=== PATIENT | male | born 1935 | race Caucasian/White ===

== ENCOUNTER → 2023-06-29 08:07 | Outpatient (REF) | payer MEDICARE, OTHER, SELFPAY ==
[2023-06-29 12:57] LABS: % Basophils 0.5 % (0-2); % Eosinophils 1.3 % (0-6); % Immature Granulocytes 0.3 % (0-0.5); % Lymphocytes 31.4 % (20.5-51.1); % Monocytes 8.9 % (1.7-9.3); % Neutrophils 57.6 % (42.2-75.2); Absolute Eosinophils 0.1 10^3/uL (0-0.7); Absolute Lymphocytes 2.5 10^3/uL (1.2-3.4); Absolute Monocytes 0.7 10^3/uL (0.1-0.6); Absolute Neutrophils 4.6 10^3/uL (1.4-6.5); Hemoglobin 13.7 g/dL (13.0-18.0); Mean Corp Hgb Conc. 35.1 g/dL (33.0-37.0); Mean Corpuscular Hgb 30.9 pg (27.0-31.0); Mean Corpuscular Volume 87.8 fL (80.0-94.0); Mean Platelet Volume 9.9 fL (7.4-10.4); Nucleated Red Blood Cells % 0 % (-); Platelet Count 275 10^3/uL (130-400); Red Blood Cell Count 4.44 10^6/uL (4.70-6.10); Red Cell Dist. Width 14.3 % (11.5-14.5); White Blood Cell Count 7.9 10^3/uL (4.8-10.8)
[2023-06-29 13:43] LABS: ALT (SGPT) 23 U/L (0-50); AST (SGOT) 24 U/L (17-59); Albumin 4.4 g/dl (3.5-5.0); Alkaline Phosphatase 78 U/L (38-126); Blood Urea Nitrogen 16 mg/dl (9-20); Calcium 9.1 mg/dl (8.4-10.2); Carbon Dioxide 30 mmol/L (22-30); Chloride 95 mmol/L (98-107); Glucose 107 mg/dl (70-99); Potassium 3.7 mmol/L (3.5-5.1); Sodium 133 mmol/L (135-145); Total Bilirubin 0.9 mg/dl (0.2-1.3); Total Protein 6.9 g/dl (6.3-8.2); eGFR > 60.00
[2023-06-29 14:09] LABS: PSA, Total - Diagnostic < 0.06 ng/ml (0.0-4.0)
== END ==
LOC: HWLAB 08:07
PROVIDERS: ATTENDING PHYSICIAN Internal Medicine
DX: I10 Essential (primary) hypertension (principal); M51.26 Other intervertebral disc displacement, lumbar region; C61 Malignant neoplasm of prostate
CPT/HCPCS: 36415; 80053; 84153; 85025

== ENCOUNTER → 2023-07-02 10:19 | Outpatient (REF) | payer MEDICARE, OTHER, SELFPAY | LOC: HWRAD 10:19 | PROVIDERS: ATTENDING PHYSICIAN Internal Medicine | DX: C61 Malignant neoplasm of prostate (principal); R10.32 Left lower quadrant pain; R19.4 Change in bowel habit | CPT/HCPCS: 74178; Q9967 ==

== ENCOUNTER → 2024-01-10 10:58 | Outpatient (REF) | payer MEDICARE, OTHER, SELFPAY | LOC: MRI 3T 10:58 | PROVIDERS: ATTENDING PHYSICIAN Specialist; FAMILY PHYSICIAN Internal Medicine | DX: M75.42 Impingement syndrome of left shoulder (principal) | CPT/HCPCS: 73221 ==

== ENCOUNTER → 2024-04-06 08:06 | Outpatient (REF) | payer MEDICARE, OTHER, SELFPAY | LOC: HWRAD 08:06 | PROVIDERS: ATTENDING PHYSICIAN Family Medicine | DX: R07.89 Other chest pain (principal) | CPT/HCPCS: 71046 ==

== ENCOUNTER 2024-08-16 12:46 | Emergency (ER) | payer MEDICARE, OTHER, SELFPAY ==
[2024-08-16 12:49] VITALS: BP 151/95
[2024-08-16 13:11] LABS: % Basophils 0.6 % (0-2); % Eosinophils 1.1 % (0-6); % Immature Granulocytes 0.2 % (0-0.5); % Lymphocytes 28.8 % (20.5-51.1); % Monocytes 9.1 % (1.7-9.3); % Neutrophils 60.2 % (42.2-75.2); Absolute Basophils 0.1 10^3/uL (0-0.2); Absolute Eosinophils 0.1 10^3/uL (0-0.7); Absolute Lymphocytes 2.4 10^3/uL (1.2-3.4); Absolute Monocytes 0.8 10^3/uL (0.1-0.6); Absolute Neutrophils 5.1 10^3/uL (1.4-6.5); Hematocrit 41.2 % (39.0-52.0); Hemoglobin 14.5 g/dL (13.0-18.0); Mean Corp Hgb Conc. 35.2 g/dL (33.0-37.0); Mean Corpuscular Hgb 31.5 pg (27.0-31.0); Mean Corpuscular Volume 89.6 fL (80.0-94.0); Mean Platelet Volume 9.4 fL (7.4-10.4); Nucleated Red Blood Cells % 0 % (-); Platelet Count 249 10^3/uL (130-400); Red Cell Dist. Width 13.3 % (11.5-14.5); White Blood Cell Count 8.5 10^3/uL (4.8-10.8)
[2024-08-16 13:31] LABS: ALT (SGPT) 21 U/L (0-50); AST (SGOT) 22 U/L (17-59); Albumin 4.4 g/dl (3.5-5.0); Alkaline Phosphatase 79 U/L (38-126); Blood Urea Nitrogen 19 mg/dl (9-20); Calcium 9.5 mg/dl (8.4-10.2); Carbon Dioxide 33 mmol/L (22-30); Chloride 100 mmol/L (98-107); Glucose 139 mg/dl (70-99); Potassium 3.8 mmol/L (3.5-5.1); Sodium 137 mmol/L (135-145); Total Bilirubin 0.6 mg/dl (0.2-1.3); Total Protein 7.1 g/dl (6.3-8.2); eGFR > 60.00
[2024-08-16 14:01] LABS: PSA, Total - Diagnostic < 0.06 ng/ml (0.0-4.0)
--- NOTE | 2024-08-16 14:11 | ED.CVA ---
History of Present Illness
General
Chief Complaint: CVA/TIA Symptoms
Source: patient
Exam Limitations: none
Time Seen by Provider: 08/16/24 14:11
Nursing documentation reviewed up to this point in time: agreed with
Onset of Stroke Symptoms
Onset of symptoms known: No
Time pt last seen normal is known: No
History of Present Illness
History of Present Illness:
89-year-old male presents with 6 episodes in the past 3 weeks of lightheadedness, left arm numbness and inability to move the fingers on his left hand. These are accompanied by a mild headache also. Every time it happens he chews 5 baby aspirin's.
These episodes last 2 to 3 minutes.
Today at 10:00 AM 'I felt like I would pass out,' his left arm got numb and weak and could not move his fingers. At this time he states his symptoms are resolved with 'just a tiny bit of numbness in his left hand fingers. There was never any loss
of consciousness.
Denies chest pain or trouble breathing. Denies N/V/D/C.
Past History
Past History
ED Past Medical History: Asthma, Cancer (Prostate cancer), Hypercholesterolemia, Other (TIA, vertigo) and Other (Status post prostatectomy for cancer, bilateral hernia repair, status post retinal tear, status post laser surgery for glaucoma, status
post cataracts, status post TIA in 2008 with a normal workup clearing MRI and CT)
ED Past Surgical History: Cardiac (Cardiac catheterization 02/27/2011 showing normal pulmonary artery pressures with no significant pulmonary hypertension. Exercise stress test 02/22/2011 showing no significant ischemia), Urological and Other
(bilateral inguinal hernia repairs)
Social History
Tobacco: Non-smoker
Alcohol: Occasional
Personal:
Living: alone
Employment: Retired
Family History
Family History: Other (Noncontributory)
Review of Systems
Review of Systems
Allergies reviewed?: Yes
All Other Systems: ROS reviewed and negative except as documented in HPI and ROS
Constitutional: Denies fever or fatigue
Respiratory: Denies trouble breathing
Cardiac: Denies chest pain or syncope
ABD/GI: Denies abdominal pain, nausea, vomiting, diarrhea or anorexia
: Denies dysuria, frequency, incontinence or difficulty voiding
Musculoskeletal: Reports other (bilateral rotator cuff problems with numbness in left arm and hand at times. Followed by ortho, recommended surgery but trying steroid injections currently)
Skin: Reports no symptoms
Neurological: Reports numbness (States left hand fingers are 'a tiny bit numb.'); Denies dizzy, headache or weakness
Phy Exam
Physical Exam
Physical Exam:
GENERAL: No acute distress. A&Ox3.
CONSTITUTIONAL: Afebrile.
EYES: clear, conjunctivae normal
ENMT: moist mucus membranes, Pharynx nl
RESPIRATORY: Regular respirations, nonlabored, lungs clear.
CARDIOVASCULAR: Regular rate and rhythm, no murmurs, no rubs.
GI: Soft, nontender, normal BS
MUSCULOSKELETAL: Moves with ease. Well perfused.
SKIN: Warm, dry, pink
PSYCH: Normal mood and affect. Well kept, interactive and appropriate
NEUROLOGIC: Awake, alert and oriented. Speech clear. Cranial nerves II through XII intact. Ambulates well with steady gait. No focal neurological deficits
Course
Orders/Labs/Results
Orders:
Orders
08/16/24
Electrocardiogram (*1) Stat
Comment: DONE
08/16/24 12:53
CT Head W/o Iv Contrast Urgent
Comment:
Reason For Exam: L arm numbness, lightheaded
08/16/24 13:03
Complete Blood Count/With Diff Urgent
Comprehensive Metabolic Panel Urgent
PSA, Total - Diagnostic Urgent
Troponin I Urgent
08/16/24 15:44
Add On- LAB Urgent
Tests Added?: troponin
08/16/24 17:10
CT Head & Neck Angio W/wo IV Urgent
Comment:
Reason For Exam: ?TIAs past 3 weeks, asymptomatic now, Neuro reques
Abnormal Lab Results
08/16/24
13:03
RBC 4.60 L 10^6/uL
(4.70-6.10)
MCH 31.5 H pg
(27.0-31.0)
Absolute Monos (auto) 0.8 H 10^3/uL
(0.1-0.6)
Carbon Dioxide 33 H mmol/L
(22-30)
Glucose 139 H mg/dl
(70-99)
08/16/24 13:03
08/16/24 13:03
Vital Signs
Initial and Last Documented VS:
Initial Vital Signs
Temp Pulse Resp BP Pulse Ox
98.7 F 97 16 151/95 95
08/16/24 12:49 08/16/24 12:49 08/16/24 12:49 08/16/24 12:49 08/16/24 12:49
Last Documented Vital Signs
Temp Pulse Resp BP Pulse Ox
97.9 F 69 15 142/80 94
08/16/24 16:09 08/16/24 19:00 08/16/24 19:00 08/16/24 19:00 08/16/24 19:00
MDM/Problems Addressed
Differential Diagnosis Includes:
TIA, CVA, ACS, radiculopathy from known shoulder pathology
MDM/Problems Addressed:
89-year-old male presents with 6 episodes in the past 3 weeks of lightheadedness, left arm numbness and inability to move the fingers on his left hand. These are accompanied by a mild headache also. Every time it happens he chews 5 baby aspirin's.
These episodes last 2 to 3 minutes.
Today at 10:00 AM 'I felt like I would pass out,' his left arm got numb and weak and could not move his fingers. At this time he states his symptoms are resolved with 'just a tiny bit of numbness in his left hand fingers. There was never any loss
of consciousness.
Denies chest pain or trouble breathing. Denies N/V/D/C.
Patient states history of prostate cancer that was removed he is requesting a PSA test
2:00 PM:
EKG normal sinus rhythm with RBBB
CBC normal
CMP with no clinically significant abnormality
Head CT shows no acute intracranial abnormality or interval change per the radiology read
3:55 PM
Case discussed with Dr. Rodriguez who agrees patient should be admitted for further neuro evaluation.
No indication of cardiac etiology of symptoms.
Hospitalist notified of admission.
Pt informed
5:00 p.m.
HAFSA Holbrook saw pt and reports he is refusing to stay as 'observation' admission.
Discussed with Dr. Rodriguez, pt to sign out AMA
Dr. Vera Neurology consulted, he requests CTA head and neck, if ok can go home.
7:00 p.m.
CTA radiology report reviewed: No significant finding.
He will contact his PCP tomorrow about today's visit
Remains asymptomatic
*EKG
EKG Intrepretation Date: 08/16/24
Interpretation: abnormal
Comparison EKG: no changes
Rate: normal
Rhythm: sinus
[place]: normal axis
Interval: normal interval
QRS Pattern: right bundle branch block
Ischemia: no ischemia
*Critical Care Note
Total Time (30-74mins, 75-104mins- exclusive of procedures): Not Applicable
ED Attending Note
-
Portions of this chart may have been created with voice recognition software.� Occasional wrong word or��sound alike� substitutions may have occurred due to the inherent limitations of voice recognition software.
Discharge Plan
Departure
Patient Disposition: Home (Routine Discharge)
Date of Disposition: 08/16/24
Time of Disposition: 15:55
Admit to: Med/Surg
Patient with high blood pressure during this ER visit?: No
Condition: Good
Discharge Problem:
Paresthesia of left upper extremity
Instructions: Paresthesia (DC)
Prescriptions:
No Action
meclizine 12.5 MG tablet
12.5 mg PO TIDPRN PRN (Reason: dizziness)
acetaminophen [Tylenol Extra Strength] 500 MG tablet
500 mg PO PRN PRN (Reason: pain)
multivitamin [Multi-Day] 1 EACH tablet
1 ea PO DAILY
aspirin 81 MG tablet,delayed release (DR/EC)
81 mg PO DAILY
alprazolam 0.25 MG tablet
0.25 mg PO HSPRN PRN (Reason: anxiety)
loratadine 10 MG tablet
10 mg PO DAILYPRN PRN (Reason: allergies)
peg 400-propylene glycol [Systane Ultra] 10 ML drops
1 drp BOTH EYES BID
vit C,W-Ry-zvkrg-lutein-zeaxan [PreserVision AREDS-2] 1 EACH capsule
1 ea PO QPM
hydrocodone-acetaminophen 1 TABLET tablet
1 - 2 tab PO Q4HPRN PRN (Reason: moderate to severe pain) Qty: 20 0RF
hydrochlorothiazide 12.5 mg tablet
12.5 mg PO DAILY Qty: 20 0RF
hydrocortisone acetate [Anusol-HC] 25 mg suppository
25 mg [place] BID Qty: 24 0RF
Activity Restrictions/Additional Instructions:
As we discussed, nothing worrisome in your workup here today.
Discuss your intermittent arm numbness with your orthopedic doctor.
Interventions
Interventions:
*Risk Screen - Suicide Last Done: 08/16/24 12:49
*General Assessment Last Done: 08/16/24 17:46
*Neglect/Abuse Screening Last Done: 08/16/24 12:49
*ED- Fall Risk Assessment Last Done: 08/16/24 17:46
*ED COVID-19 Vaccine History Last Done: 08/16/24 17:46
ED- Cardiac Assessment Last Done: 08/16/24 17:46
ED- Neurological Assessment Last Done: 08/16/24 17:46
ED- Pulmonary Assessment Last Done: 08/16/24 17:46
Discharge Date and Time
Print Language: DIVEHI
[2024-08-16 16:09] VITALS: BP 169/105
[2024-08-16 16:42] LABS: Troponin I < 0.012 ng/ml
[2024-08-16 17:42] VITALS: BP 151/81
[2024-08-16 18:00] VITALS: BP 142/75
[2024-08-16 18:51] VITALS: BP 151/83
[2024-08-16 19:00] VITALS: BP 142/80
== END 2024-08-16 19:41 | disposition home or self-care (01) ==
LOC: EMR 12:46
PROVIDERS: Registered Nurse; EMERGENCY PHYSICIAN Student in an Organized Health Care Education/Training Program; FAMILY PHYSICIAN Internal Medicine
DX: R20.2 Paresthesia of skin (principal); E78.00 Pure hypercholesterolemia, unspecified; J45.909 Unspecified asthma, uncomplicated; Z85.46 Personal history of malignant neoplasm of prostate; Z86.73 Personal history of transient ischemic attack (TIA), and cerebral infarction without residual deficits
CPT/HCPCS: 99284; 70450; 70496; 70498; 80053; 84153; 84484; 85025; 93005; Q9967

== ENCOUNTER → 2024-08-19 09:12 | Outpatient (REF) | payer MEDICARE, OTHER, SELFPAY | LOC: PAVMRI 09:12 | PROVIDERS: ATTENDING PHYSICIAN Internal Medicine | DX: R42 Dizziness and giddiness (principal); J44.9 Chronic obstructive pulmonary disease, unspecified; G43.919 Migraine, unspecified, intractable, without status migrainosus | CPT/HCPCS: 70551 ==

== ENCOUNTER 2024-11-26 09:53 | Emergency (ER) | payer MEDICARE, OTHER, SELFPAY ==
[2024-11-26 10:05] VITALS: BP 170/88
[2024-11-26] MEDS: TYLENOL 650 MG PO (12:29)
[2024-11-26] MEDS: ADACEL 0.5 ML IM (12:30)
--- NOTE | 2024-11-26 13:26 | ED.GENMED ---
History of Present Illness
General
Chief Complaint: Fall
Source: patient
Exam Limitations: none
Time Seen by Provider: 11/26/24 11:45
Nursing documentation reviewed up to this point in time: agreed with
History of Present Illness
History of Present Illness:
Patient is an 89-year-old male who presents the emergency department with concerns of head injury. Patient states that yesterday evening he bent over to pick things up off the ground and stood up striking his head on a wooden shelf. He denies any
loss of consciousness. He has not had any significant headache since incident. He denies any nausea/vomiting, visual changes, dizziness, back pain. He has been ambulating without difficulty
Patient states upon waking this morning he felt a lump on the back of his head which he suspects was from the injury last night. He came to the emergency department for further evaluation.
No other injury sustained.
He is not on any oral anticoagulation.
Past History
Past History
ED Past Medical History: Asthma, Cancer (Prostate cancer), Hypercholesterolemia, Other (TIA, vertigo) and Other (Status post prostatectomy for cancer, bilateral hernia repair, status post retinal tear, status post laser surgery for glaucoma, status
post cataracts, status post TIA in 2008 with a normal workup clearing MRI and CT)
ED Past Surgical History: Cardiac (Cardiac catheterization 02/27/2011 showing normal pulmonary artery pressures with no significant pulmonary hypertension. Exercise stress test 02/22/2011 showing no significant ischemia), Urological and Other
(bilateral inguinal hernia repairs)
Social History
Tobacco: Non-smoker
Alcohol: Occasional
Personal:
Living: alone
Employment: Retired
Family History
Family History: Other (Noncontributory)
Review of Systems
Review of Systems
Allergies reviewed?: Yes
All Other Systems: ROS reviewed and negative except as documented in HPI and ROS
Phy Exam
Physical Exam
Physical Exam:
Vitals: Hypertensive, otherwise vital signs stable. Afebrile
General: Patient is well appearing, no acute distress
Skin: Approx 2cm vertical laceration on occipital scalp with dried blood. No active bleeding.
Head: Normocephalic, laceration as above.
Eyes: Sclera nonicteric. EOMs intact. No nystagmus.
Throat: Protecting airway
Neck: Normal ROM, no cervical spine tenderness, no meningismus
Cardiac: Regular rate and rhythm, no murmurs.
Pulm: Normal respiratory effort, no wheezes, rales, rhonchi heard on exam
Abdomen: Abdomen soft and nontender. No ecchymoses
Extremities: No evidence of cyanosis or edema. B/l upper and lower extremities atraumatic and nontender with full ROM
Neuro: AAOx3. CN II-XII grossly intact. Normal finger to nose. Steady gait and fluid speech.mNo focal neurologic deficits.
Psychiatric: Normal affect.
Course
Orders/Labs/Results
Orders:
Orders
11/26/24 12:16
Acetaminophen [Tylenol] 650 mg PO NOW STA
Tetanus/Diphth/Acelpertussis [Adacel] 0.5 ml IM .ONCE ONE
11/26/24 12:17
CT Head W/o Iv Contrast Urgent
Comment:
Reason For Exam: fall w/ headstrike
Vital Signs
Initial and Last Documented VS:
Initial Vital Signs
Temp Pulse Resp BP Pulse Ox
97.6 F 82 20 170/88 97
11/26/24 10:05 11/26/24 10:05 11/26/24 10:05 11/26/24 10:05 11/26/24 10:05
Last Documented Vital Signs
Temp Pulse Resp BP Pulse Ox
97.6 F 81 16 165/74 98
11/26/24 10:05 11/26/24 13:39 11/26/24 13:39 11/26/24 13:39 11/26/24 13:39
Procedures
Laceration Closure
Posterior Scalp:
Status of Wound: clean
Size of Wound in cm: 2
Description of Wound Edges: sharp
Preparation: cleaned with saline
Revision/Debridement: routine- no revision
Wound exploration: explored to base- no FB
Type of Closure: Dermabond-skin glue
MDM/Problems Addressed
Differential Diagnosis Includes:
Not limited to: laceration, contusion, concussion, intracerebral hemorrhage, etc
MDM/Problems Addressed:
89-year-old male presenting after head injury last night. Patient struck his head on the shelf as he was standing up after bending over to pick something off of the ground. No LOC. No anticoagulation. He feels well and is asymptomatic.
Vitals and physical exam as above. Patient A & O x3 with no neurological deficits noted on exam. He does have an approximately 2cm laceration on his occipital scalp, which at this point has very well approximated wound edges and is not actively
bleeding. No evidence of other traumatic injuries.
ED plan: Will check CT scan and irrigate wound. Will update tetanus shot.
Update: CT scan without acute traumatic injuries. Laceration on posterior scalp irrigated thoroughly w/ normal saline. While wound edges are very well approximated � did apply small amount of skin glue for reinforcement.
Patient remain well appearing in no distress. Stable for discharge home w/ PCP f/u and strict return precautions.
Chronic conditions affecting care:
HTN
Acute Exacerbation and/or Progression of Chronic Illness:
Acutely hypertensive
*Radiology
Radiology exam reviewed: radiology read reviewed
*Pulse Oximetry
SaO2: 97
Oxygen Mode of Delivery: Room air
Patient hypoxic: no
*EKG
Interpreted by ED Provider?: NA
*Locator Specialist Interpretation
Rate: Locator Specialist- N/A
*Critical Care Note
Total Time (30-74mins, 75-104mins- exclusive of procedures): Not Applicable
ED Attending Note
-
Portions of this chart may have been created with voice recognition software.� Occasional wrong word or��sound alike� substitutions may have occurred due to the inherent limitations of voice recognition software.
Discharge Plan
Departure
Patient Disposition: Home (Routine Discharge)
Date of Disposition: 11/26/24
Time of Disposition: 13:28
Patient with high blood pressure during this ER visit?: Yes
Discharge Problem:
Laceration of occipital scalp, Head injury
Instructions: Laceration Repair With Glue (DC), Head Injury in Adults (DC), BLOOD PRESSURE
Prescriptions:
No Action
meclizine 12.5 MG tablet
12.5 mg PO TIDPRN PRN (Reason: dizziness)
acetaminophen [Tylenol Extra Strength] 500 MG tablet
500 mg PO PRN PRN (Reason: pain)
multivitamin [Multi-Day] 1 EACH tablet
1 ea PO DAILY
aspirin 81 MG tablet,delayed release (DR/EC)
81 mg PO DAILY
alprazolam 0.25 MG tablet
0.25 mg PO HSPRN PRN (Reason: anxiety)
loratadine 10 MG tablet
10 mg PO DAILYPRN PRN (Reason: allergies)
peg 400-propylene glycol [Systane Ultra] 10 ML drops
1 drp BOTH EYES BID
vit C,L-Dc-oqzbc-lutein-zeaxan [PreserVision AREDS-2] 1 EACH capsule
1 ea PO QPM
hydrocodone-acetaminophen 1 TABLET tablet
1 - 2 tab PO Q4HPRN PRN (Reason: moderate to severe pain) Qty: 20 0RF
hydrochlorothiazide 12.5 mg tablet
12.5 mg PO DAILY Qty: 20 0RF
hydrocortisone acetate [Anusol-HC] 25 mg suppository
25 mg [place] BID Qty: 24 0RF
Referrals:
UNKNOWN - PT DOES,NOT KNOW [Family Provider]
Activity Restrictions/Additional Instructions:
RETURN TO THE EMERGENCY DEPARTMENT WITH ANY SEVERE HEADACHE OR NECK PAIN, VISUAL CHANGES, CHANGES IN MENTAL STATUS, DIZZINESS, DIFFICULTIES WALKING, BLEEDING FROM WOUND THAT WILL NOT STOP AT HOME, OR ANY SIGNS OF INFECTION AROUND WOUND
- As discussed�your head CT showed no evidence of acute intracranial traumatic injuries. Your laceration did stop bleeding in the emergency department prior to any intervention. However�I did place a small amount of skin glue to further reinforce
wound edges.
- Please keep wound dry for the next 24 hours. Then you can continue to wash gently soap and water every day. Glue will dissolve on its own over the next few days�week. Monitor for signs of infection.
- Follow-up with your primary care provider for further evaluation/management and to ensure that your symptoms are improving
Monitor your symptoms closely and return to the emergency department with any acute worsening/new symptoms or any other concerns
Interventions
Interventions:
*Risk Screen - Suicide Last Done: 11/26/24 10:05
*General Assessment Last Done: 11/26/24 10:05
*Neglect/Abuse Screening Last Done: 11/26/24 10:05
*ED- Fall Risk Assessment Last Done: 11/26/24 10:05
*ED COVID-19 Vaccine History Last Done: 11/26/24 10:05
*Nursing Disposition Last Done: 11/26/24 13:39
ED-Musculoskeletal Assessment Last Done: 11/26/24 11:36
ED- Neurological Assessment Last Done: 11/26/24 11:36
ED-Skin Assessment Last Done: 11/26/24 11:36
Discharge Date and Time
Discharge Date/Time: 11/26/24 13:40
Print Language: LEBANESE
[2024-11-26 13:39] VITALS: BP 165/74
== END 2024-11-26 13:40 | disposition home or self-care (01) ==
LOC: EMR 09:53
PROVIDERS: EMERGENCY PHYSICIAN Emergency Medicine
DX: S01.01XA Laceration without foreign body of scalp, initial encounter (principal); W22.09XA Striking against other stationary object, initial encounter; J45.909 Unspecified asthma, uncomplicated; E78.00 Pure hypercholesterolemia, unspecified; I10 Essential (primary) hypertension; Z86.73 Personal history of transient ischemic attack (TIA), and cerebral infarction without residual deficits
CPT/HCPCS: 99284; 12001; 90471; 70450; 90715

== ENCOUNTER → 2025-01-16 08:28 | Outpatient (REF) | payer MEDICARE, OTHER, SELFPAY ==
[2025-01-16 11:43] LABS: Hematocrit 40.7 % (39.0-52.0); Hemoglobin 14.3 g/dL (13.0-18.0); Mean Corp Hgb Conc. 35.1 g/dL (33.0-37.0); Mean Corpuscular Volume 88.5 fL (80.0-94.0); Nucleated Red Blood Cells % 0 % (-); Platelet Count 272 10^3/uL (130-400); Red Cell Dist. Width 13.6 % (11.5-14.5)
[2025-01-16 12:05] LABS: ALT (SGPT) 18 U/L (0-50); AST (SGOT) 20 U/L (17-59); Albumin 4.4 g/dl (3.5-5.0); Alkaline Phosphatase 60 U/L (38-126); Blood Urea Nitrogen 18 mg/dl (9-20); Calcium 9.4 mg/dl (8.4-10.2); Carbon Dioxide 31 mmol/L (22-30); Chloride 100 mmol/L (98-107); Glucose 99 mg/dl (70-99); HDL Cholesterol 77 mg/dl; LDL Cholesterol, Calculated 135 mg/dl; Potassium 3.6 mmol/L (3.5-5.1); Sodium 138 mmol/L (135-145); Total Protein 7.0 g/dl (6.3-8.2); Very Low Density Lipoprotein 13 mg/dl (0-30); eGFR > 60.00
[2025-01-16 12:23] LABS: PSA, Total - Diagnostic < 0.06 ng/ml (0.0-4.0)
== END ==
LOC: HWLAB 08:28
PROVIDERS: ATTENDING PHYSICIAN Nurse Practitioner Family
DX: K58.9 Irritable bowel syndrome, unspecified (principal); C61 Malignant neoplasm of prostate; I10 Essential (primary) hypertension; E78.2 Mixed hyperlipidemia; E78.00 Pure hypercholesterolemia, unspecified; Z23 Encounter for immunization
CPT/HCPCS: 36415; 80053; 80061; 84153; 84443; 85025

== ENCOUNTER → 2025-02-05 12:15 | Outpatient (REF) | payer MEDICARE, OTHER, SELFPAY | LOC: MRI 3T 12:15 | PROVIDERS: ATTENDING PHYSICIAN Physical Medicine & Rehabilitation; FAMILY PHYSICIAN Internal Medicine | DX: M54.16 Radiculopathy, lumbar region (principal) | CPT/HCPCS: 72148 ==